=== PATIENT | female | born 1960 | race Caucasian/White ===

== ENCOUNTER → 2020-01-01 12:50 | Outpatient (CLI) | payer OTHER, SELFPAY ==
--- NOTE | ~2020-01-01 | MM_ITS ---
EXAMINATION: MM screening travis BI w rosalina HISTORY: Screening mammogram, family history of breast cancer in her mother. TECHNIQUE: Craniocaudal and mediolateral oblique 3-D tomosynthesis images were obtained and synthetic 2-D images were generated. CAD analysis was submitted and interpreted. COMPARISON: 01/08/2019, 12/04/2017 BREAST PARENCHYMAL COMPOSITION: There are scattered areas of fibroglandular density. FINDINGS: There is no evidence of suspicious mass, calcification, or architectural distortion to sugg est malignancy in either breast. There has been no suspicious interval change. IMPRESSION: 1. No mammographic evidence of malignancy. 2. Recommend routine screening mammography in one year. BI-RADS Category 1: Negative Reviewed, dictated and finalized at location A.
== END ==
PROVIDERS: Visit Provider Obstetrics & Gynecology
DX: Z12.31 Encounter for screening mammogram for malignant neoplasm of breast (principal)
CPT/HCPCS: 77063; 77067

== ENCOUNTER → 2021-01-02 12:46 | Outpatient (CLI) | payer OTHER, SELFPAY ==
--- NOTE | ~2021-01-02 | MM_ITS ---
EXAMINATION: MM screening travis BI w rosalina HISTORY: Screening mammogram, family history of breast cancer in her mother. TECHNIQUE: Craniocaudal and mediolateral oblique 3-D tomosynthesis images were obtained and synthetic 2-D images were generated. CAD analysis was submitted and interpreted. COMPARISON: 01/01/2020, 12/29/2018, 12/04/2017 BREAST PARENCHYMAL COMPOSITION: There are scattered areas of fibroglandular density. FINDINGS: There is no evidence of suspicious mass, calcification, or architectural distortion to sugg est malignancy in either breast. There has been no suspicious interval change. IMPRESSION: 1. No mammographic evidence of malignancy. 2. Recommend routine screening mammography in one year. BI-RADS Category 1: Negative Reviewed, dictated and finalized at location A.
== END ==
PROVIDERS: PCP Internal Medicine; Visit Provider Obstetrics & Gynecology
DX: Z12.31 Encounter for screening mammogram for malignant neoplasm of breast (principal)
CPT/HCPCS: 77063; 77067

== ENCOUNTER → 2021-04-25 12:07 | Outpatient (CLI) | payer OTHER, SELFPAY ==
--- NOTE | ~2021-04-25 | US_ITS ---
EXAMINATION: US abdomen limited DATE: 04/25/2021 12:25 INDICATION: Abnormal liver function tests TECHNIQUE: Multiple grayscale and Doppler ultrasound images of the abdomen were obtained. COMPARISON: None available FINDINGS: The head, body, and tail of the pancreas are normal. The liver is normal with normal echoge nicity and echotexture. No surface nodularity. Normal hepatopetal flow in the main portal vein. The g allbladder is normal with no abnormal wall thickening, pericholecystic fluid or stones. The normal co mmon bile duct measures 3 mm. There was no sonographic Gauthier sign. IMPRESSION: 1. No sonographic correlate for the patient's symptoms. Reviewed, dictated and finalized at location B.
== END ==
PROVIDERS: PCP Internal Medicine
DX: R94.5 Abnormal results of liver function studies (principal)
CPT/HCPCS: 76705

== ENCOUNTER → 2022-06-07 12:12 | Outpatient (CLI) | payer OTHER, SELFPAY ==
--- NOTE | ~2022-06-07 | DEXA_ITS ---
Bone Density Report Name: BRIE MANDUJANO Age: 62 Sex: Female Ethnicity: White Date of : 1960 Indication: postmenopausal; screening for osteoporosis; Referring Provider: KEEGAN CROW Study: Bone densitometry was performed. Exam Date: June 07, 2022 Accession number: [id number] Bone Density: Region BMD T-score Z-score Classification AP Spine (L1-L4) 0.993 -0.5 0.9 Normal Femoral Neck (Left) 0.744 -0.9 0.3 Normal Total Hip (Left) 0.940 0.0 0.9 Normal Femoral Neck (Right) 0.739 -1.0 0.3 Normal Total Hip (Right) 0.907 -0.3 0.7 Normal Total Hip Mean 0.924 -0.2 0.8 Normal World Health Organization criteria for BMD impression classify patients as: Normal (T-score at or above -1.0), Osteopenia (T-score between -1.0 and -2.5), or Osteoporosis (T-score at or below -2.5). 10-year Fracture Risk: FRAX not reported because: All T-scores for Spine Total, Hip Total, Femoral Neck at or above -1.0 Previous Exams: Region Exam Age BMD T-score BMD Change BMD Change Date g/cm2 vs Baseline vs Previous AP Spine(L1-L4) 06/07/2022 62 0.993 -0.5 -0.053* -0.053* 08/04/2018 58 1.046 0.0 Total Hip(Left) 06/07/2022 62 0.940 0.0 -0.055* -0.055* 08/04/2018 58 0.995 0.4 Total Hip(Right) 06/07/2022 62 0.907 -0.3 -0.048* -0.048* 08/04/2018 58 0.955 0.1 *Denotes significance at 95% confidence level, LSC for AP Spine = 0.022 g/cm2, LSC for Total Hip = 0.027 g/cm2 Clinical Information Provided by Patient: Patient maximum height was 63.5 Menopause Age: 55 Does not regularly consume dairy products Onset of menses at age 15 Number of children 1 Impression: The patient has normal bone mass. The BMD for the AP Spine(L1-L4) decreased, changing by -0.053 since the last DXA exam. The BMD for the Total Hip(Left) decreased, changing by -0.055 since the last DXA exam. The BMD for the Total Hip(Right) decreased, changing by -0.048 since the last DXA exam. Discussion: BONE DENSITY IS ABOVE THE MINIMUM DESIRABLE LEVEL AT ALL SKELETAL SITES TESTED. This patient?s bone mineral density is above the minimum desirable level (T-score -1.0 or better) at all sites measured. The patient should follow a healthful lifestyle (good nutrition with adequate calcium and vitamin D, and appropriate weight-bearing exercise). Follow-Up: Consider repeating this study in 3 to 4 years to reassess this patient's status, or alfredo
--- NOTE | ~2022-06-07 | MM_ITS ---
EXAMINATION: MM screening travis BI w rosalina HISTORY: Screening TECHNIQUE: Craniocaudal and mediolateral oblique 3-D tomosynthesis images were obtained and synthetic 2-D images were generated. CAD analysis was submitted and interpreted. COMPARISON: Comparison to multiple prior studies sequentially, with oldest reviewed study dated 12/04. BREAST PARENCHYMAL COMPOSITION: There are scattered areas of fibroglandular density. FINDINGS: There are developing asymmetries in the upper outer quadrant of the right breast near the a reola. The left breast is stable without evidence for malignancy. IMPRESSION: 1. Developing right breast asymmetries. 2. Additional mammographic views and possible breast ultrasound are recommended. BI-RADS Category 0: Incomplete: Needs additional imaging evaluation. Reviewed, dictated and finalized at location B. [employer] IMPRESSION: 1. Developing right breast asymmetries. 2. Additional mammographic views and possible breast ultrasound are recommended . BI-RADS Category 0: Incomplete: Needs additional imaging evaluation.
== END ==
PROVIDERS: PCP Internal Medicine; Visit Provider Obstetrics & Gynecology Gynecology
DX: Z12.31 Encounter for screening mammogram for malignant neoplasm of breast (principal); R92.8 Other abnormal and inconclusive findings on diagnostic imaging of breast; Z78.0 Asymptomatic menopausal state
CPT/HCPCS: 77063; 77067; 77080

== ENCOUNTER → 2022-11-27 09:29 | Outpatient (CLI) | payer OTHER, SELFPAY ==
--- NOTE | ~2022-11-27 | MMUS_ITS ---
EXAMINATION: MM diagnostic travis RT w rosalina, US breast RT limited HISTORY: Follow-up right breast asymmetries TECHNIQUE: Additional 3-D tomosynthesis images of the right breast were performed and synthetic 2-D i mages were generated. CAD analysis was submitted and interpreted. High resolution Limited right breas t ultrasound was performed. COMPARISON: Comparison to multiple prior studies sequentially, with oldest reviewed study dated 12/04. BREAST PARENCHYMAL COMPOSITION: Breast composed of scattered areas of fibroglandular density FINDINGS: MAMMOGRAPHIC FINDINGS: 1. There is stable focal nodular asymmetries in the periareolar/subareolar location of the right al[address]. No suspicious calcifications or abnormal clustered calcifications. ULTRASOUND: Limited right breast ultrasound: There are mildly prominent subareolar ducts. At 12:00 near the areol a there is a 6 mm cyst. IMPRESSION: 1. No evidence for malignancy in the right breast. Benign findings. 2. Routine yearly screening mammogram and regular clinical breast examination are recommended. BI-RADS Category 2: Benign finding(s). Reviewed, dictated and finalized at location A. IMPRESSION: 1. No evidence for malignancy in the right breast. Benign findings. 2. Routine yearly screening mammogram and regular clinical breast examination a re recommended. BI-RADS Category 2: Benign finding(s).
== END ==
PROVIDERS: PCP Internal Medicine; Visit Provider Obstetrics & Gynecology Gynecology
DX: R92.8 Other abnormal and inconclusive findings on diagnostic imaging of breast (principal)
CPT/HCPCS: 76642; 77061; 77065; G0279

== ENCOUNTER 2023-11-12 10:05 | Outpatient (CLI) | payer OTHER, SELFPAY ==
--- NOTE | ~2023-11-12 | MM_ITS ---
EXAMINATION: MM screening travis BI w rosalina HISTORY: Screening TECHNIQUE: Craniocaudal and mediolateral oblique 3-D tomosynthesis images were obtained and synthetic 2-D images were generated. CAD analysis was submitted and interpreted. COMPARISON: Comparison to multiple prior studies sequentially, with oldest reviewed study dated 01/2019. BREAST PARENCHYMAL COMPOSITION: Not dense: There are scattered areas of fibroglandular density. FINDINGS: There is no evidence of suspicious mass, calcification, or architectural distortion to sugg est malignancy in either breast. There has been no suspicious interval change. IMPRESSION: 1. No mammographic evidence of malignancy. 2. Recommend routine screening mammography in one year. BI-RADS Category 1: Negative Reviewed, dictated and finalized at location A.
== END 2023-11-12 10:06 ==
PROVIDERS: PCP Obstetrics & Gynecology Gynecology; Visit Provider Obstetrics & Gynecology Gynecology
DX: Z12.31 Encounter for screening mammogram for malignant neoplasm of breast (principal)
CPT/HCPCS: 77063; 77067